=== PATIENT | female | born 1970 | race Caucasian/White ===

== ENCOUNTER 2017-09-02 17:52 | Emergency (ER) | payer MEDICAID, OTHER ==
[2017-09-02] MEDS: KETOROLAC 15 MG INJ IM (19:10)
== END 2017-09-02 19:57 | disposition home or self-care (01) ==
LOC: FTE 17:52
DX: R51 Headache (principal); R68.83 Chills (without fever)
CPT/HCPCS: 96372; 99284-25

== ENCOUNTER 2018-05-18 18:49 | Emergency (ER) | payer SELFPAY, MEDICAID ==
[2018-05-18] MEDS: ACETAMINOPHEN 325 MG TAB PO (19:15)
[2018-05-18] MEDS: ONDANSETRON (ODT) 4 MG TAB ODT (19:15)
[2018-05-18 19:27] LABS: URINE PH (Dip) POC 6.5 (5.0-8.5)
[2018-05-18 19:27] LABS: URINE BLOOD (Dip) POC Negative (NEGATIVE); URINE GLUCOSE (Dip) POC Negative (NEGATIVE); URINE KETONES (Dip) POC Negative (NEGATIVE); URINE LEUKOCYTE EST (Dip) POC Negative (NEGATIVE); URINE NITRITE (Dip) POC Negative (NEGATIVE); URINE TOTAL PROTEIN POC Negative (NEGATIVE)
== END 2018-05-18 20:15 | disposition home or self-care (01) ==
LOC: FTE 18:49
DX: R11.10 Vomiting, unspecified (principal)
CPT/HCPCS: 81003; 81025; 93005; 99283-25